=== PATIENT | male | born 1965 | race Caucasian/White ===

== ENCOUNTER 2020-01-23 20:06 | Emergency (ER) | payer BC ==
[~2020-01-23] VITALS: Ht 175.3 cm; Wt 88.5 kg
[2020-01-23 20:30] VITALS: BP_SYST 154
== END 2020-01-23 21:20 | disposition left against medical advice (07) ==
LOC: SED 20:06
DX: R11.0 Nausea (principal); Z53.21 Procedure and treatment not carried out due to patient leaving prior to being seen by health care provider